=== PATIENT | female | born 1950 | race Caucasian/White ===

== ENCOUNTER 2016-12-26 08:47 | Outpatient (CLI) | payer MEDICARE, OTHER ==
[2016-01-23 02:23] VITALS: BP 110/75
[2016-12-26 09:48] LABS: eGFR (African) > 60; eGFR (Non-African) > 60
--- NOTE | 2016-12-27 07:36 | Diagnostic Imaging Report ---
[facility] [id number] [facility].[address] [id number] Report Submission Date: Dec 26, 2016 4:27:03 PM [employer] Patient Study Name: NARESH GREENE Date: Dec 26, 2016 10:09:12 AM [employer] Modality Type: CT\SR Gender: F Description: CT ABD & PELVIS W/WO : 46 Institution: [facility] Physician: LAKESHIA Computed tomography of the abdomen and pelvis without and with contrast History: Hematuria Findings: Transverse abdomen and pelvis sections are obtained without and with 82 mL intravenous omnipaque 350. The posterior gastric fundal diverticulum, mild multilevel lumbar spondylosis, and minimal aortic atherosclerosis are observed. 3 small right renal cysts are observed. There is no nephrolithiasis, obstructive uropathy, or solid renal mass. The gallbladder, liver, spleen, pancreas, adrenals, and mesenteric structures are unremarkable. Bowel loops exhibit normal caliber and wall thickness. Pelvic sections reveal a decompressed urinary bladder and unremarkable bowel loops. The appendix is not identified. A small calcified uterine fundal fibroid is observed. Impression: 1. Small right renal cysts. Otherwise unremarkable urinary tract. 2. Mild lumbar spondylosis, minimal atherosclerosis, and small calcified uterine fibroid noted. Electronically signed on Dec 26, 2016 4:27:03 PM [employer] by: Donald DELEON
== END 2016-12-26 08:50 ==
LOC: RAD 08:47
PROVIDERS: ATTEND Urology
DX: R31.9 Hematuria, unspecified (principal)
CPT/HCPCS: 36415; 74178; 82565; 84520; Q9966